=== PATIENT | male | born 1970 | race Hispanic/Latino ===

== ENCOUNTER 2018-12-29 08:42 | Outpatient (CLI) | payer OTHER ==
--- NOTE | 2018-12-29 09:04 | RAD ---
XR Chest Pa Lat STANDARD HISTORY: Chronic cough COMPARISON: 02/19/2013 FINDINGS: The heart size is normal. The lungs are well expanded without focal areas of consolidation, pneumothorax or pleural effusions. IMPRESSION: No radiographic evidence of acute cardiopulmonary process.
== END 2018-12-29 08:43 | disposition home or self-care (01) ==
LOC: BICRAD 08:42
PROVIDERS: ATTEND Family Medicine
DX: R05 Cough (principal)
CPT/HCPCS: 71046

== ENCOUNTER 2020-02-25 06:34 | Outpatient (CLI) | payer OTHER ==
[2020-02-25 16:18] LABS: #Eosinphils 0.2 thou/uL (0.0-0.7); #Lymphocytes 2.7 thou/uL (1.20-3.40); #Monocytes 0.6 thou/uL (0.11-0.59); %Basophils 0.2 % (0.0-1.0); %Lymphocytes 28.5 % (21.0-51.0); %Monocytes 6.3 % (0.0-10.0); Hemoglobin 15.9 g/dL (14.0-18.0); Mean Corpuscular HGB CONC 33.1 g/dL (32.0-36.0); Mean Corpuscular Hemoglobin 30.2 pg (27.0-31.0); Mean Corpuscular Volume 91.3 fL (78.0-98.0); Mean Platelet Volume 6.3 fL (7.4-10.4); Platelet Count 201 thou/uL (130-400); RBC Distribution Width 12.9 % (11.5-14.5); Red Blood Cell (RBC) Count 5.24 mill/uL (4.70-6.10); White Blood Cell (WBC) Count 9.5 thou/uL (4.8-10.8)
[2020-02-25 16:44] LABS: Anion Gap 15 mmol/L (10-20); BUN (Urea Nitrogen) 15 mg/dL (8.9-20.6); Calc. Creatinine Clearance 0 mL/min (70-130); Calcium 9.1 mg/dL (7.8-10.44); Carbon Dioxide 21 mmol/L (22-29); Chloride 108 mmol/L (98-107); Estimated GFR-MDRD 81; Glucose 85 mg/dL (70-105); Sodium 140 mmol/L (136-145)
[2020-02-26 14:01] LABS: SARS-CoV-2 MS2 Positive; SARS-CoV-2 N Gene Negative; SARS-CoV-2 S Gene Negative; SARS-CoV-2 orf1ab Negative
== END 2020-02-25 06:35 | disposition home or self-care (01) ==
LOC: LABBT 06:34
PROVIDERS: ATTEND Specialist
DX: Z01.818 Encounter for other preprocedural examination (principal); Z11.59 Encounter for screening for other viral diseases; K43.9 Ventral hernia without obstruction or gangrene
CPT/HCPCS: 80048; 85025; 87635; 93005; 93010; U0003

== ENCOUNTER 2020-02-29 06:04 | Day surgery (SDC) | payer OTHER ==
[2020-02-22 10:12] VITALS: BMI 39.9
--- NOTE | 2020-02-29 06:14 | HP ---
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 He has noticed a hernia occurring in his left lower quadrant. On exam, this was felt to be a spigelian hernia. Plan is for robot mesh repair of this spigelian hernia. Standing exam reveals absence of groin hernias. The hernia is bothersome and it only causes slight amount of discomfort. We will plan this as an outpatient. ALLERGIES: 1. AMOXICILLIN. 2. MORPHINE. SOCIAL HISTORY: Tobacco none. Alcohol none. MEDICATIONS: 1. Mucinex. 2. Omeprazole. PAST MEDICAL HISTORY: 1. Asthma, environmental. 2. Reflux occasionally. PAST SURGICAL HISTORY: Colonoscopy in 1992. Laparoscopic cholecystectomy that I performed in 2012. FAMILY HISTORY: Mother with coronary disease, Alzheimer's. PHYSICAL EXAMINATION: VITAL SIGNS: Weight 252 pounds, 67 inches, 39 BMI, 151/76, 89, 95.9 degrees. HEAD EARS EYES, NOSE AND THROAT: Unremarkable. LUNGS: Clear to auscultation. CARDIAC: Regular rate and rhythm. No murmur or gallop. ABDOMEN: Soft, nontender. : On standing testicles are normal. No inguinal hernias on standing. On standing, his left lower quadrant well above the groin, he has a hernia that is reducible. It appears on Valsalva. I can feel it pop back in when I push to reduce it. He feels this also. EXTREMITIES: Without ankle edema. ASSESSMENT AND PLAN: Suspect spigelian hernia left lower quadrant. PLAN: Robot mesh repair, outpatient. He should abstain from lifting over 25 pounds for 4 weeks postoperatively. He understands risks and benefits, consents. COVID testing within 5 days prior to this necessary surgery due to risk of incarceration. Job ID: [id number]
[2020-02-29] MEDS ORDERED: Levofloxacin 500 mg/D5W 100 ml Premix Bag ONE (06:38)
[2020-02-29] MEDS ORDERED: Lidocaine 1% w/Epinephrine 1:100K 20 ML VIAL ONE (06:38)
[2020-02-29] MEDS ORDERED: Bupivacaine PF 0.5% 30 ML VIAL ONE (06:38)
[2020-02-29] MEDS ORDERED: Acetaminophen 500 MG TAB ONE (06:38)
[2020-02-29] MEDS ORDERED: Gabapentin 300 MG CAP ONE (06:38)
[2020-02-29] MEDS ORDERED: Ketorolac Tromethamine 30 MG/ML VIAL ONE (06:38)
[2020-02-29] MEDS ORDERED: Fentanyl 250 MCG/5 ML VIAL ONE (06:46)
[2020-02-29] MEDS ORDERED: Phenylephrine 10 MG/ML VIAL ONE (06:46)
[2020-02-29] MEDS ORDERED: SUGAMMADEX SODIUM 200 MG/2 ML VIAL ONE (09:18)
[2020-02-29] MEDS ORDERED: Ondansetron PF 4 MG/2 ML Vial ONE (10:07)
[2020-02-29] MEDS ORDERED: PROPOFOL 200 MG/20 ML VIAL ONE (10:07)
[2020-02-29] MEDS ORDERED: EPHEDRINE 25 MG/5 ML SYRINGE ONE (10:07)
[2020-02-29] MEDS ORDERED: Glycopyrrolate 0.2 MG/ML 5 ML SYRINGE ONE (10:07)
[2020-02-29] MEDS ORDERED: Succinylcholine Chloride 20 MG/ML 10 ml SYRINGE FS ONE (10:07)
[2020-02-29] MEDS ORDERED: Rocuronium Bromide 10 MG/ML (10ML VIAL) ONE (10:07)
[2020-02-29] MEDS ORDERED: PHENYLEPHRINE-NS 100 MCG/ML 10 ML SYRINGE ONE (10:07)
[2020-02-29] MEDS ORDERED: Dexamethasone 20 MG/5 ML VIAL ONE (10:07)
[2020-02-29] MEDS ORDERED: Lidocaine 1% PF 5 ML VIAL ONE (10:07)
--- NOTE | 2020-02-29 10:26 | OP ---
DATE OF PROCEDURE: 02/29/2020 PREOPERATIVE DIAGNOSES: 1. Spigelian hernia, left lower quadrant. 2. Morbid obesity. POSTOPERATIVE DIAGNOSES: 1. Left inguinal hernia. 2. Morbid obesity. PROCEDURE PERFORMED: Laparoscopic robot mesh repair of left inguinal hernia. ANESTHESIA: General, local with 0.5% Marcaine with epinephrine 30 mL, mixed with 1% Xylocaine with epinephrine 20 mL. DESCRIPTION OF PROCEDURE: The patient was taken to the operating room where under general anesthesia, Rosa catheter was placed at the beginning of the procedure and removed at the end. Abdomen was clipped of hair, prepared with ChloraPrep, and draped in routine fashion. The patient was placed in slight Trendelenburg into the right. Right subxiphoid incision made and pneumoperitoneum to 15 mmHg obtained with a Veress needle, replacing with an 11 balloon port and a video laparoscope inserted. What was thought to be a spigelian hernia was in fact an inguinal hernia. A supraumbilical left of midline incision was made and another 11-mm balloon port placed. Left lateral midabdominal incision made just above the umbilical level and an 8-mm port placed, and on the right side, an 8-mm port placed in the right lateral abdomen. The robot was docked, positioned and robot repair undertaken. Peritoneal flap taken down from the midline to the anterior superior iliac spine, dissecting the hernia sac free from surrounding tissues. There was a large amount of fatty tissue in the preperitoneal space, dissected free. Cord structures skeletonized for least 10 cm. Good hemostasis noted. A mesh large introduced and placed in the preperitoneal space, properly positioned, secured to Jaiden ligament and sutured with 2-0 Vicryl and the abdominal wall with 2-0 Vicryl to the left of the inferior epigastric vessels. Once the mesh was probably positioned, the peritoneal flap was clipped, secured and closed with continuous suture of 2-0 V-Loc suture. Once this was accomplished, good hernia repair appreciated. Pneumoperitoneum reduced. All instruments were removed. All skin incisions were approximated with interrupted subdermal 4-0 Monocryl, and [place] glue applied. The patient tolerated the procedure well. Job ID: [id number]
[2020-02-29] MEDS ORDERED: HYDROcodone/Acetaminophen 5/325 mg Tablet ONE (10:42)
== END 2020-02-29 11:41 | disposition home or self-care (01) ==
LOC: SDC 06:04
PROVIDERS: ATTEND Specialist
PROC: 0YU64JZ Supplement Left Inguinal Region with Synthetic Substitute, Percutaneous Endoscopic Approach (ICD-10-PCS; principal; 2020-02-29)
DX: K40.90 Unilateral inguinal hernia, without obstruction or gangrene, not specified as recurrent (principal); J45.909 Unspecified asthma, uncomplicated; K21.9 Gastro-esophageal reflux disease without esophagitis; E66.01 Morbid (severe) obesity due to excess calories; Z68.39 Body mass index [BMI] 39.0-39.9, adult; Z79.899 Other long term (current) drug therapy; Z88.0 Allergy status to penicillin; Z88.5 Allergy status to narcotic agent
CPT/HCPCS: C1781; J1100; J1885; J1956; J2370; J2405; J2704; J3010; S0020